=== PATIENT | male | born 1945 | race African-American/Black ===

== ENCOUNTER → 2017-01-13 | Outpatient (CLI) | payer OTHER, BC | LOC: RAD 15:42 | DX: J32.8 Other chronic sinusitis (principal); R05 Cough; R07.9 Chest pain, unspecified ==

== ENCOUNTER → 2018-04-14 | Outpatient (CLI) | payer OTHER ==
[~2018-04-14] VITALS: Ht 193 cm; Wt 69.4 kg
[~2018-04-14] MED LIST: ALLERGY SINUS-1 EACH PO; ASPIRIN325 PO; COZAAR 50 MG TA50 M2 PO; LIPITOR10 MG PO; PROBIOTIC1 EAC1 PO; VITAMIN D1000 UNI1 PO
--- NOTE | ~2018-04-14 | PATH ---
[facility] [address] [place] [address] PATHOLOGY RPT PROCEDURE Name: AURELIA KEBEDE Room #: REG AUGIE Funk#: [id number] Admission: 04/14/18 Date of : 45 Discharge: Report #: [id number] Path Case #: [id number] [facility] Accession Number: [id number] . 01 Material submitted: . POLYP AT TRANSVERSE COLON . 01 Clinical history: . Pre-Op DX: Hx polyps Post-Op DX: Colon polyp . 02 Diagnosis: Polyp, at transverse colon, endoscopic biopsy: - Tubular adenoma. - Negative for high-grade dysplasia. (IUV:pit 04/15/2018) QTP/04/15/2018 . 02 Electronically signed: . Lashonda Rios MD, Pathologist NPI- [id number] . 01 Gross description: . Received in formalin labeled "Kebede, Theotis, polyp at transverse colon," are 3 segments of garcias soft tissue measuring 0.9 x 0.6 x 0.2 cm in aggregate dimensions and ranging from 0.4 to 0.6 cm in maximum dimension. The specimen is submitted entirely in cassette A1. (TSD; 04/14/2018) TOB/TOB . 02 Pathologist provided ICD-10: D12.3 . 02 CPT . 385064 Performed at: [address], [place] [id number] MD Jaden Johnson MD Phone: [phone] Performed at: [address] [id number] MD Lashonda Rios MD Phone: [phone]
--- NOTE | ~2018-04-14 | P ---
[facility] [place] [address] PROCEDURE REPORT Name: AURELIA ROMERO Room #: REG AUGIE Blessing#: [id number] Admission: 04/14/18 Attend Phys: Christian Escobar Discharge: Date of : 45 Report #: [id number] THIS REPORT FOR: //name// CC: Christian Graves MD DATE OF SERVICE: 04/14/2018 PROCEDURE PERFORMED: Colonoscopy with biopsies. HISTORY OF PRESENT ILLNESS: The patient is a 72-year-old male, with a previous history of colon polyps, here for a 5-year followup. Denies any symptoms. No family history of colon cancer. DESCRIPTION OF PROCEDURE: The risks and benefits of the procedure were explained to the patient, those risks including, but not limited to bleeding, perforation and the risk of sedation. He understood these risks and gave informed consent. Sedation was given using propofol per anesthesia. Next, a digital rectal exam was initially performed, which was normal. Next, using a standard Olympus colonoscope, the scope was placed in the patient's anus and advanced under direct vision to the cecum. The overall prep was excellent. The cecum and ileocecal valve were normal in appearance. The ascending colon was normal. In the transverse colon, two 3-4 mm sessile polyps are noted, both removed with cold forceps, otherwise normal. The descending and sigmoid colon were normal. The rectal mucosa was normal. On retroflexion, small nonbleeding internal hemorrhoids were noted, otherwise normal colonoscopy. The scope was then withdrawn and the procedure terminated. The patient tolerated the procedure well. IMPRESSION: 1. Two small colonic polyps. 2. Small internal hemorrhoids. 3. Otherwise, normal colonoscopy. RECOMMENDATIONS: 1. Await biopsy results. 2. If polyps are hyperplastic, repeat in 10 years; if adenomatous polyp, repeat in 5 years. Thank you for allowing me to participate in his care. <ELECTRONICALLY SIGNED> By: Christian Camara MD 04/16/18 [id number] Christian Camara MD /nt
== END | disposition home or self-care (01) ==
LOC: GI 08:39
DX: Z12.11 Encounter for screening for malignant neoplasm of colon (principal); Z86.010 Personal history of colon polyps; D12.3 Benign neoplasm of transverse colon; K64.8 Other hemorrhoids; I10 Essential (primary) hypertension; E78.5 Hyperlipidemia, unspecified; F17.210 Nicotine dependence, cigarettes, uncomplicated; Z98.890 Other specified postprocedural states; Z79.899 Other long term (current) drug therapy; Z88.8 Allergy status to other drugs, medicaments and biological substances; Z79.82 Long term (current) use of aspirin
CPT/HCPCS: 62110; 62900

== ENCOUNTER 2018-10-10 08:40 | Emergency (ER) | payer OTHER, BC ==
[~2018-10-10] VITALS: Ht 193 cm; Wt 72.1 kg
[2018-10-10 09:18] LABS: ABSOLUTE NEUTROPHILS 5.8 thou/uL (1.4-8.2); BASOPHILS 1.4 % (0.0-2.0); EOSINOPHILS 1.4 % (0.0-3.0); HEMATOCRIT 39.2 % (42.0-52.0); LYMPHOCYTES 22.2 % (24.0-44.0); MCH 31.6 pg (26.0-34.0); MCHC 33.3 g/dL (28.0-37.0); MCV 94.9 fL (80.0-100.0); MONOCYTES 9.2 % (1.0-8.0); PLATELET COUNT 355 thou/uL (150-400); POLYS 65.8 % (36.0-66.0); RBC 4.13 mil/uL (4.50-6.00); RDW 14.1 % (10.5-14.5); WBC 8.8 thou/uL (4.0-11.0)
[2018-10-10 09:22] LABS: ANION GAP 6 mmol/L (7-16); BUN 32 mg/dL (7-18); CALCIUM 9.5 mg/dL (8.5-10.1); CHLORIDE 103 mmol/L (98-107); CO2 29 mmol/L (21-32); CREATININE 1.5 mg/dL (0.7-1.3); GLUCOSE 98 mg/dL (74-106); POTASSIUM 4.4 mmol/L (3.5-5.1); SODIUM 138 mmol/L (136-145)
[2018-10-10 09:31] LABS: TROPONIN-I <0.06 ng/mL (<0.06)
[2018-10-10 13:14] VITALS: BP 167/90
--- NOTE | 2018-10-11 08:46 | EKG ---
[place] [address] [facility] [place] [address] ELECTROCARDIOGRAM REPORT Name: AURELIA ROMERO Room #: DEP Blessing#: [id number] Admission: 10/10/18 Attend Phys: Discharge: 10/10/18 Date of : 45 Report #: [id number] THIS REPORT FOR: //name// [facility] ED Test Date: 2018-10-10 Test Time: 09:24:17 Pat Name: AURELIA ROMERO Department: Room: Gender: Real Estate Salesperson: [facility] : 1945 Requested By: Tee Sarabia Order Number: [id number] MD: Capo Murphy Measurements Intervals [place] Rate: 86 P: 65 LA: 177 QRS: -23 QRSD: 84 T: 57 QT: 371 QTc: 444 Interpretive Statements Sinus rhythm Borderline left axis deviation No previous ECG available for comparison Electronically Signed On 10-11-2018 8:46:13 [employer] by Capo Murphy [email or web address] <ELECTRONICALLY SIGNED> By: Capo Murphy MD, [facility] 10/11/18 0846 0924 3 Capo Murphy MD, FACC /EPI
== END 2018-10-10 13:36 | disposition home or self-care (01) ==
LOC: ER 08:40
PROVIDERS: Emergency Medicine
DX: R04.0 Epistaxis (principal); R42 Dizziness and giddiness; I10 Essential (primary) hypertension; E78.5 Hyperlipidemia, unspecified; F17.210 Nicotine dependence, cigarettes, uncomplicated; Z88.6 Allergy status to analgesic agent

== ENCOUNTER → 2019-05-04 | Outpatient (CLI) | payer OTHER, BC | LOC: ULTRA 07:58 | DX: J44.9 Chronic obstructive pulmonary disease, unspecified (principal); R19.00 Intra-abdominal and pelvic swelling, mass and lump, unspecified site; J98.4 Other disorders of lung ==